=== PATIENT | male | born 1950 | race Caucasian/White ===

== ENCOUNTER 2024-10-10 16:28 | Emergency (ER) | payer SELFPAY ==
[2024-10-10] MEDS ORDERED: Ondansetron PF 4 MG/2 ML Vial ONE (16:53)
[2024-10-10] MEDS ORDERED: fentaNYL 50 mcg/mL 1 mL Vial ONE (16:53)
== END 2024-10-10 18:13 | disposition home or self-care (01) ==
LOC: NAV ERS 16:28
DX: S22.41XA Multiple fractures of ribs, right side, initial encounter for closed fracture (principal); R03.0 Elevated blood-pressure reading, without diagnosis of hypertension; I10 Essential (primary) hypertension; Z79.899 Other long term (current) drug therapy; W01.10XA Fall on same level from slipping, tripping and stumbling with subsequent striking against unspecified object, initial encounter
CPT/HCPCS: 94799; 96374; 96375; J2405; J3010